=== PATIENT | female | born 1965 | race African-American/Black ===

== ENCOUNTER 2024-08-02 04:11 | Inpatient (IN) | payer OTHER ==
[2024-07-31 11:40] VITALS: BMI 27.4
[2024-08-02] MEDS ORDERED: BUPIVACAINE HCL/PF 0.5% (5MG/ML) 10 ML VIAL ONE (07:27)
[2024-08-02] MEDS ORDERED: LIDOCAINE HCL 1%, 10 MG/ML (20ML VIAL) ONE (07:27)
[2024-08-02] MEDS ORDERED: MIDAZOLAM HCL 2 MG/2 ML SINGLE DOSE VIAL ONE ×2 (08:00→08:25)
[2024-08-02] MEDS ORDERED: ONDANSETRON 4 MG/2 ML VIAL ONE ×2 (08:09→10:23)
[2024-08-02] MEDS ORDERED: PHENYLEPHRINE HCL 10 MG/1 ML SINGLE DOSE VIAL ONE (08:20)
[2024-08-02] MEDS ORDERED: DEXAMETHASONE SOD PHOSPHATE 4 MG/1 ML VIAL ONE (08:25)
[2024-08-02] MEDS ORDERED: ceFAZolin SODIUM 1 GM VIAL ONE (08:25)
[2024-08-02] MEDS: ceFAZolin SODIUM 1 GM VIAL IVPB ONE (08:26)
[2024-08-02] MEDS ORDERED: TRANEXAMIC ACID 1000 MG/10 ML VIAL ONE (08:26)
[2024-08-02] MEDS ORDERED: PROPOFOL 20 ML ONE ×2 (08:49→09:02)
[2024-08-02] MEDS ORDERED: KETOROLAC TROMETHAMINE 30 MG/1 ML VIAL ONE (09:26)
[2024-08-02] MEDS ORDERED: NALOXONE HCL 0.4 MG/ML VIAL IVPUSH PRN (09:59)
[2024-08-02] MEDS ORDERED: oxyCODONE HCL 5 MG TABLET PO PRN ×2 (09:59)
[2024-08-02] MEDS ORDERED: SENNOSIDES/DOCUSATE COMBO (SENNA PLUS) TABLET (UD) PO PRN (10:06)
[2024-08-02] MEDS ORDERED: IBUPROFEN 600 MG TABLET (FP) PO PRN (10:06)
[2024-08-02] MEDS ORDERED: ACETAMINOPHEN 1000 MG/100 ML BAG IVPB PRN (10:08)
[2024-08-02] MEDS: CEFAZOLIN 2 GM/D5W 2 GM/50 ML ML IVPB ONE (10:27)
[2024-08-02] MEDS: ONDANSETRON 4 MG/2 ML VIAL IVPUSH PRN ×2 (10:27→18:18)
[2024-08-02] MEDS: morphine SULFATE/PF 1 MG/2 ML (2cc Syringe - QUVA) IT ONE (10:27)
[2024-08-02] MEDS: LACTATED RINGERS SOLUTION 1,000 ML IV SCH (10:28)
[2024-08-02] MEDS: DOCUSATE SODIUM 100 MG CAPSULE (FP) PO SCH (10:28)
[2024-08-02] MEDS ORDERED: ACETAMINOPHEN INJECTION 100 ML ONE (10:29)
[2024-08-02] MEDS: ACETAMINOPHEN 1000 MG/100 ML BAG IVPB ONE (10:31)
[2024-08-02] MEDS: IBUPROFEN 800 MG/8 ML IJ IVPB PRN (13:53)
[2024-08-02] MEDS: SIMETHICONE 80 MG TAB.CHEW (FP) PO PRN (13:54)
[2024-08-02] MEDS: ACETAMINOPHEN 500 MG TABLET (FP) PO SCH (16:24)
[2024-08-02] MEDS: KETOROLAC TROMETHAMINE 30 MG/1 ML VIAL IVPUSH SCH (16:25)
[2024-08-02] MEDS: CEFAZOLIN 2 GM/D5W 2 GM/50 ML ML IVPB SCH (18:17)
[2024-08-02] MEDS: ACETAMINOPHEN 325 MG TABLET (FP) PO SCH (19:38)
[2024-08-03 09:04] LABS: BASO % 0.1 % (0-2.0); HEMATOCRIT 30.8 % (32.4-45.2); HEMOGLOBIN 10.1 GM/dL (10.7-15.3); LYMPH % 6.2 % (8-40); MCH 28.2 pg (25.7-33.7); MCHC 32.6 g/dl (32.0-36.0); MEAN CELL VOLUME 86.4 fl (80-96); MEAN PLT VOLUME 10.2 fl (7.5-11.1); MONO % 7.4 % (3.8-10.2); NEUT % 86.3 % (42.8-82.8); PLATELET COUNT 210 10^3/uL (134-434); RBC 3.56 M/mm3 (3.60-5.2); RDW 17.2 % (11.6-15.6); WHITE BLOOD COUNT 12.3 K/mm3 (4.0-10.0)
[2024-08-03] MEDS ORDERED: BISACODYL 10 MG SUPP.RECT RC PRN (10:06)
[2024-08-03] MEDS: IBUPROFEN 600 MG TABLET (FP) PO PRN (13:55)
[2024-08-03 21:39] VITALS: RESP 18
[2024-08-04 07:01] VITALS: BP 145/81; PULSE 64; TEMP 99.3
== END 2024-08-04 10:54 | disposition home or self-care (01) | DRG 743 ==
LOC: J2C 04:11 → J8W 12:09
PROVIDERS: ADMIT Obstetrics & Gynecology; ATTEND Obstetrics & Gynecology
PROC: 0UT20ZZ Resection of Bilateral Ovaries, Open Approach (ICD-10-PCS; 2024-08-02)
PROC: 0UT70ZZ Resection of Bilateral Fallopian Tubes, Open Approach (ICD-10-PCS; 2024-08-02)
PROC: 0UT90ZZ Resection of Uterus, Open Approach (ICD-10-PCS; principal; 2024-08-02 08:00)
DX: D25.9 Leiomyoma of uterus, unspecified (principal); N92.0 Excessive and frequent menstruation with regular cycle
CPT/HCPCS: 36415; 81025; 85025; 86850; 86900; 86901; 88307-TC; 94010; 94760; J0131